=== PATIENT | male | born 1960 | race Caucasian/White ===

== ENCOUNTER 2020-10-24 10:10 | Day surgery (SDC) | payer BC ==
[2020-10-23 12:31] VITALS: BMI 28.5
[2020-10-24] MEDS ORDERED: Lidocaine 1% w/Epinephrine 1:100K 20 ML VIAL ONE (11:47)
[2020-10-24] MEDS ORDERED: AFRIN NASAL MIST 15 ML BOT ONE ×2 (11:47→11:53)
[2020-10-24] MEDS ORDERED: Fentanyl 100 MCG/2 ML VIAL ONE ×4 (11:53→14:06)
[2020-10-24] MEDS ORDERED: Midazolam HCl 2 mg/2 ml Vial ONE (12:08)
[2020-10-24] MEDS ORDERED: PROPOFOL 200 MG/20 ML VIAL ONE (12:10)
[2020-10-24] MEDS ORDERED: Ondansetron PF 4 MG/2 ML Vial ONE (12:10)
[2020-10-24] MEDS ORDERED: Lidocaine 1% PF 5 ML VIAL ONE (12:10)
[2020-10-24] MEDS ORDERED: Glycopyrrolate 0.2 MG/ML 5 ML SYRINGE ONE (12:10)
[2020-10-24] MEDS ORDERED: Dexamethasone 20 MG/5 ML VIAL ONE (12:10)
[2020-10-24] MEDS ORDERED: Rocuronium Bromide 10 MG/ML (10ML VIAL) ONE (12:10)
[2020-10-24] MEDS ORDERED: EPINEPHrine 1 MG/ML AMP ONE ×2 (12:50→12:52)
[2020-10-24] MEDS ORDERED: Morphine 4 MG/ML VIAL ONE ×2 (13:53→14:35)
[2020-10-24] MEDS ORDERED: Promethazine HCl 25 MG/ML VIAL ONE (13:56)
[2020-10-24] MEDS ORDERED: HYDROcodone/Acetaminophen 5/325 mg Tablet ONE (16:04)
== END 2020-10-24 17:40 | disposition home or self-care (01) ==
LOC: SDC 10:10
PROVIDERS: ATTEND Specialist
DX: J32.0 Chronic maxillary sinusitis (principal); J34.2 Deviated nasal septum; J33.9 Nasal polyp, unspecified; J34.3 Hypertrophy of nasal turbinates; F17.210 Nicotine dependence, cigarettes, uncomplicated; E78.00 Pure hypercholesterolemia, unspecified; I10 Essential (primary) hypertension; Z79.899 Other long term (current) drug therapy; Z88.0 Allergy status to penicillin
CPT/HCPCS: J0171; J1100; J2250; J2270; J2405; J2550; J2704; J3010